=== PATIENT | male | born 1945 | race Caucasian/White ===

== ENCOUNTER 2017-10-30 09:53 | Day surgery (SDC) | payer MEDICARE ==
[2017-10-29 10:21] VITALS: BMI 24.0
[2017-10-30 12:22] LABS: Estimated GFR-MDRD - POC Greater than 90
--- NOTE | 2017-10-30 13:41 | MRI ---
MRI LUMBAR SPINE WITH AND WITHOUT GADOLINIUM CONTRAST: HISTORY: Low back pain. Prior surgery. Postoperative fluid collection. Followup. COMPARISON: 06/03/2017 FINDINGS: The conus medullaris has a normal appearance. Vertebral body heights and alignment are maintained. There is desiccation of all the intervertebral disks. T12-L1/L1-L2/L2-L3: There is mild osteophytosis. The central canal and neural foramina are patent. L3-L4: Degenerative changes result in moderate right and mild left foraminal stenosis. Minimal disk bulge is present. L4-L5: Posterior operative changes are apparent. 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 There is a lso severe stenosis of the left neural foramen. The lobulated fluid collection posterior to the thec al sac, centered at the L5 level, is 5.2 cm in length x 3 cm in depth, unchanged from the previous ex am. L5-S1: Postoperative changes are apparent. The central canal and neural foramina are patent. IMPRESSION: 1. Degenerative and postoperative changes throughout the lumbar spine, as detailed above. Stenosis is most severe at the neural foramina of the L4-L5 level, greater on the right than the left. Clinic al correlation regarding the right L4 dermatome is required. 2. Posterior postoperative fluid collection at the L5 level is stable. No evidence of inflammation. POS: ELIS
[2017-10-30] MEDS ORDERED: Gadobenate Dimeglumine 529 MG/1 ML (20ML VIAL) ONE (16:52)
--- NOTE | 2017-10-31 07:18 | EKG ---
Test Reason : PREOP Blood Pressure : / mmHG Vent. Rate : 083 BPM Atrial Rate : 083 BPM P-R Int : 138 ms QRS Dur : 088 ms QT Int : 384 ms P-R-T Axes : 056 012 042 degrees QTc Int : 451 ms Normal sinus rhythm Normal ECG Confirmed by JOHAN JENSEN, DR. Parsons ([id number]) on 10/31/2017 7:17:31 AM Referred By: LEA Confirmed By:DR. Issa PRADO MD
== END 2017-10-30 14:12 | disposition home or self-care (01) ==
LOC: SDC/OP 09:53
PROVIDERS: ATTEND Specialist
DX: M54.16 Radiculopathy, lumbar region (principal); M35.3 Polymyalgia rheumatica; I10 Essential (primary) hypertension; E78.5 Hyperlipidemia, unspecified; Z79.899 Other long term (current) drug therapy; Z88.6 Allergy status to analgesic agent; Z88.1 Allergy status to other antibiotic agents; Z88.8 Allergy status to other drugs, medicaments and biological substances; Z98.890 Other specified postprocedural states; Z85.828 Personal history of other malignant neoplasm of skin
CPT/HCPCS: 72148; 72158; 82565; 93005; 93010; A9579

== ENCOUNTER 2021-05-21 12:43 | Outpatient (CLI) | payer MEDICARE | END 2021-05-21 12:44 | disposition home or self-care (01) | LOC: TBSIIMAG 12:43 | PROVIDERS: ATTEND Surgery | DX: M51.16 Intervertebral disc disorders with radiculopathy, lumbar region (principal); M48.061 Spinal stenosis, lumbar region without neurogenic claudication; M48.07 Spinal stenosis, lumbosacral region; Z98.890 Other specified postprocedural states | CPT/HCPCS: 72148 ==

== ENCOUNTER 2021-06-04 09:59 | Outpatient (CLI) | payer MEDICARE ==
[2021-06-04 12:31] LABS: Mean Corpuscular HGB CONC 34.8 g/dL (32.0-36.0); Mean Corpuscular Volume 97.9 fl (81.2-95.1); Mean Platelet Volume 10.6 fl (7.4-10.4); Platelet Count 224 10x3/uL (150-450); RBC Distribution Width 15.8 % (11.5-14.5); Red Blood Cell (RBC) Count 3.82 10x6/uL (4.32-5.72); White Blood Cell (WBC) Count 6.8 10x3/uL (3.5-10.5)
[2021-06-04 12:42] LABS: Anion Gap 14 mmol/L (10-20); BUN (Urea Nitrogen) 14 mg/dL (8.4-25.7); Calc. Creatinine Clearance 0 mL/min (70-130); Calcium 9.6 mg/dL (7.8-10.44); Carbon Dioxide 24 mmol/L (23-31); Chloride 108 mmol/L (98-107); Glucose 102 mg/dL (83-110); Potassium 4.1 mmol/L (3.5-5.1); Sodium 142 mmol/L (136-145)
[2021-06-04 12:47] LABS: INR-International Normal Ratio 1.1; Prothrombin Time 12.6 sec (9.5-12.1)
[2021-06-05 01:54] LABS: SARS-CoV-2 PCR by NAA Not Detected (NotDetected)
== END 2021-06-04 10:00 | disposition home or self-care (01) ==
LOC: LABBT 09:59
PROVIDERS: ATTEND Surgery
DX: Z01.818 Encounter for other preprocedural examination (principal); M48.061 Spinal stenosis, lumbar region without neurogenic claudication; M51.16 Intervertebral disc disorders with radiculopathy, lumbar region; Z20.822 Contact with and (suspected) exposure to COVID-19
CPT/HCPCS: 80048; 85027; 85610; 85730; 93005; U0003; U0005; 93010